=== PATIENT | female | born 1995 | race Caucasian/White ===

== ENCOUNTER 2018-05-27 14:30 | Inpatient (IN) | payer OTHER ==
[~2018-05-27] VITALS: Ht 162.6 cm; Wt 87.1 kg
[2018-05-27] MEDS ORDERED: PRENATABS RX T1 EACH PO (16:26)
== END 2018-05-31 19:21 | disposition home or self-care (01) | DRG 785 ==
LOC: O/R 05-29 09:51 → OB/GYN 05-29 09:51
PROVIDERS: ADMIT Obstetrics & Gynecology
PROC: 0UB70ZZ Excision of Bilateral Fallopian Tubes, Open Approach (ICD-10-PCS; 2018-05-29)
PROC: 4A1HXCZ Monitoring of Products of Conception, Cardiac Rate, External Approach (ICD-10-PCS; 2018-05-29)
PROC: 10D00Z1 Extraction of Products of Conception, Low, Open Approach (ICD-10-PCS; principal; 2018-05-29 10:45)
DX: O34.211 Maternal care for low transverse scar from previous cesarean delivery (principal); O75.82 Onset (spontaneous) of labor after 37 completed weeks of gestation but before 39 completed weeks gestation, with delivery by (planned) cesarean section; Z30.2 Encounter for sterilization; Z37.0 Single live birth